=== PATIENT | female | born 1930 ===

== ENCOUNTER → 2016-12-25 | Outpatient (CLI) | payer MEDICARE ==
[2016-12-25 14:14] LABS: BASOPHIL % 0.4 %; EOSINOPHIL # 0.2 K/uL (0.0-0.5); EOSINOPHIL % 3.2 %; HEMATOCRIT 42.3 % (30.0-46.0); HEMOGLOBIN 13.5 g/dL (10.0-15.0); IMMATURE GRANULOCYTE % 0.3 %; LYMPHOCYTE # 1.5 K/uL (0.8-4.0); LYMPHOCYTE % 19.8 %; MCH 28.3 pg (27.0-34.0); MCHC 31.9 gm/dL (32.0-36.5); MCV 88.7 fl (83.0-98.0); MONOCYTE # 0.5 K/uL (0.0-1.0); MONOCYTE % 6.3 %; MPV 9.8 fl (9.4-12.4); NEUTROPHIL # (ANC) 5.3 K/uL (1.8-7.8); NRBC % 0 /100WBC (0-0.00); PLATELET COUNT 250 K/uL (150-450); RBC 4.77 M/uL (3.00-5.00); RDW-CV 13.5 % (11.9-14.6); WBC 7.5 K/uL (4.0-11.0)
[2016-12-25 14:31] LABS: ALBUMIN 3.7 gm/dL (3.5-5.0); ALK PHOS 73 IU/L (33-138); ALT < 10 IU/L (12-78); ANION GAP 14.3 (10.0-19.0); AST 19 IU/L (10-40); BLOOD UREA NITROGEN 27 mg/dL (6-24); CALCIUM 8.8 mg/dL (8.5-10.5); CHLORIDE 102 mMol/L (96-110); CO2 25 mMol/L (22-32); CREATININE 1.1 mg/dL (0.5-1.1); ESTIMATED GFR (MDRD EQUATION) 47; POTASSIUM 4.3 mMol/L (3.7-5.1); SODIUM 137 mMol/L (135-145); TOTAL BILIRUBIN 0.8 mg/dL (0.0-1.5); TOTAL PROTEIN 7.2 g/dL (6.0-8.4)
== END | disposition disaster alternative care site (69) ==
LOC: LGSRV 14:03
DX: I48.91 Unspecified atrial fibrillation (principal); I10 Essential (primary) hypertension